=== PATIENT | male | born 1960 | race African-American/Black ===

== ENCOUNTER 2018-07-20 23:08 | Emergency (ER) | payer SELFPAY ==
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
[2018-07-21 02:27] VITALS: BP 158/70
== END 2018-07-21 02:26 | disposition home or self-care (01) ==
LOC: ER 23:08
DX: J70.5 Respiratory conditions due to smoke inhalation (principal); R53.83 Other fatigue
CPT/HCPCS: 36415; 82375; 99283